=== PATIENT | male | born 1975 | race Two or more races ===

== ENCOUNTER 2021-01-25 11:25 | Emergency (ER) | payer OTHER ==
[~2021-01-25] VITALS: Ht 154.9 cm; Wt 77.5 kg
[2021-01-25 11:27] VITALS: BP 134/77
--- NOTE | 2021-01-25 11:37 | NUR ---
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
[2021-01-25] MEDS ORDERED: LIDODERM 5% PATCH TD ONE ×2 (12:25→12:30)
[2021-01-25] MEDS ORDERED: KETOROLAC 30 MG/1 ML ONE (12:25)
[2021-01-25] MEDS ORDERED: DIAZEPAM 5 MG TABLET ONE (12:25)
[2021-01-25] MEDS ORDERED: DIAZEPAM 5 MG TABLET PO ONE (12:30)
[2021-01-25] MEDS ORDERED: KETOROLAC 30 MG/1 ML IM ONE (12:30)
--- NOTE | 2021-01-25 12:31 | NUR ---
[employer] PER MAR
== END 2021-01-25 13:12 | disposition home or self-care (01) ==
LOC: ED 13:00
DX: M25.511 Pain in right shoulder (principal); M25.521 Pain in right elbow; Z72.9 Problem related to lifestyle, unspecified
CPT/HCPCS: 96372; 99283; J1885